=== PATIENT | male | born 1955 | race Two or more races ===

== ENCOUNTER 2019-03-18 09:03 | Outpatient (CLI) | payer OTHER | END 2019-03-18 09:30 | disposition home or self-care (01) | LOC: LAB 09:03 | DX: D64.89 Other specified anemias (principal); G89.29 Other chronic pain; E55.9 Vitamin D deficiency, unspecified; D50.8 Other iron deficiency anemias; D51.1 Vitamin B12 deficiency anemia due to selective vitamin B12 malabsorption with proteinuria; D51.3 Other dietary vitamin B12 deficiency anemia; K29.00 Acute gastritis without bleeding; C61 Malignant neoplasm of prostate; D40.0 Neoplasm of uncertain behavior of prostate; E78.9 Disorder of lipoprotein metabolism, unspecified; D41.9 Neoplasm of uncertain behavior of unspecified urinary organ; D13.9 Benign neoplasm of ill-defined sites within the digestive system; E78.49 Other hyperlipidemia; Z79.01 Long term (current) use of anticoagulants; Z11.3 Encounter for screening for infections with a predominantly sexual mode of transmission; Z13.228 Encounter for screening for other metabolic disorders; Z01.89 Encounter for other specified special examinations; Z12.11 Encounter for screening for malignant neoplasm of colon; E03.8 Other specified hypothyroidism; R73.9 Hyperglycemia, unspecified; D69.8 Other specified hemorrhagic conditions; M10.9 Gout, unspecified; J30.0 Vasomotor rhinitis; R97.8 Other abnormal tumor markers; Z85.46 Personal history of malignant neoplasm of prostate; N39.0 Urinary tract infection, site not specified; Z13.6 Encounter for screening for cardiovascular disorders; N39.8 Other specified disorders of urinary system ==

== ENCOUNTER 2019-03-18 10:38 | Outpatient (CLI) | payer OTHER | END 2019-03-18 15:53 | disposition home or self-care (01) | LOC: MRI 10:38 | DX: J32.0 Chronic maxillary sinusitis (principal); J01.00 Acute maxillary sinusitis, unspecified; J45.902 Unspecified asthma with status asthmaticus; R05 Cough; R07.1 Chest pain on breathing; R51 Headache; R10.9 Unspecified abdominal pain; R10.2 Pelvic and perineal pain; R07.89 Other chest pain; M25.562 Pain in left knee; M25.561 Pain in right knee | CPT/HCPCS: 72148 ==

== ENCOUNTER 2022-10-04 19:31 | Outpatient (CLI) | payer OTHER | END 2022-10-04 23:00 | disposition home or self-care (01) | LOC: LAB 19:31 | PROVIDERS: ATTEND Urology | DX: R97.20 Elevated prostate specific antigen [PSA] (principal) ==

== ENCOUNTER 2022-10-21 09:37 | Outpatient (CLI) | payer OTHER | END 2022-10-21 10:00 | disposition home or self-care (01) | LOC: MRI 09:37 | DX: N50.89 Other specified disorders of the male genital organs (principal); J32.0 Chronic maxillary sinusitis; J01.00 Acute maxillary sinusitis, unspecified; J45.902 Unspecified asthma with status asthmaticus; R05.9 Cough, unspecified; R07.1 Chest pain on breathing; R51.9 Headache, unspecified; R10.9 Unspecified abdominal pain; N20.0 Calculus of kidney; G44.89 Other headache syndrome; R31.0 Gross hematuria; R31.9 Hematuria, unspecified | CPT/HCPCS: 72197 ==

== ENCOUNTER 2022-10-21 10:37 | Outpatient (CLI) | payer OTHER | END 2022-10-21 10:47 | disposition home or self-care (01) | LOC: LAB 10:37 | DX: R10.9 Unspecified abdominal pain (principal); D64.9 Anemia, unspecified; G89.29 Other chronic pain; E55.9 Vitamin D deficiency, unspecified; D50.8 Other iron deficiency anemias; D51.3 Other dietary vitamin B12 deficiency anemia; D52.0 Dietary folate deficiency anemia; K59.00 Constipation, unspecified; C61 Malignant neoplasm of prostate; D40.0 Neoplasm of uncertain behavior of prostate; E78.9 Disorder of lipoprotein metabolism, unspecified; D41.9 Neoplasm of uncertain behavior of unspecified urinary organ; D13.9 Benign neoplasm of ill-defined sites within the digestive system; E11.65 Type 2 diabetes mellitus with hyperglycemia; E78.49 Other hyperlipidemia; Z79.01 Long term (current) use of anticoagulants; Z11.3 Encounter for screening for infections with a predominantly sexual mode of transmission; Z13.228 Encounter for screening for other metabolic disorders; Z01.89 Encounter for other specified special examinations; Z12.11 Encounter for screening for malignant neoplasm of colon; E10.9 Type 1 diabetes mellitus without complications; E03.9 Hypothyroidism, unspecified; R73.9 Hyperglycemia, unspecified; D69.9 Hemorrhagic condition, unspecified; M10.9 Gout, unspecified; J30.0 Vasomotor rhinitis; R97.8 Other abnormal tumor markers; Z85.46 Personal history of malignant neoplasm of prostate; N39.0 Urinary tract infection, site not specified; I25.10 Atherosclerotic heart disease of native coronary artery without angina pectoris; I25.119 Atherosclerotic heart disease of native coronary artery with unspecified angina pectoris; I25.700 Atherosclerosis of coronary artery bypass graft(s), unspecified, with unstable angina pectoris; I25.799 Atherosclerosis of other coronary artery bypass graft(s) with unspecified angina pectoris; Z13.6 Encounter for screening for cardiovascular disorders ==

== ENCOUNTER 2022-11-01 07:17 | Outpatient (CLI) | payer OTHER | END 2022-11-01 08:01 | disposition home or self-care (01) | LOC: SONOGRAMA 07:17 | PROVIDERS: ATTEND Urology | DX: C61 Malignant neoplasm of prostate (principal); D29.1 Benign neoplasm of prostate; R97.20 Elevated prostate specific antigen [PSA] ==

== ENCOUNTER 2023-09-24 13:17 | Emergency (ER) | payer OTHER ==
[~2023-09-24] VITALS: Ht 172.7 cm; Wt 81.6 kg
[2023-09-24] MEDS ORDERED: TOPROL XL25 M1 (13:46)
== END 2023-09-24 19:15 | disposition home or self-care (01) ==
LOC: ER 13:17
DX: S00.83XA Contusion of other part of head, initial encounter (principal); W18.39XA Other fall on same level, initial encounter; Y93.89 Activity, other specified; Y92.480 Sidewalk as the place of occurrence of the external cause

== ENCOUNTER 2025-06-09 09:05 | Outpatient (CLI) | payer OTHER ==
[~2025-06-09 09:05] MED LIST: TOPROL XL25 M1
== END 2025-06-09 09:07 | disposition home or self-care (01) ==
LOC: RAD 09:05
DX: R06.02 Shortness of breath (principal)